=== PATIENT | female | born 1940 | race African-American/Black ===

== ENCOUNTER 2017-05-25 16:59 | Inpatient (IN) ==
[2017-05-25] MEDS ORDERED: TYLENOL PO ONE ×2 (17:10→22:22)
[2017-05-25 17:28] LABS: BLOOD TYPE ARTERIAL; DRAW SITE R BRACHIAL; METHB 1.1 % (0.0-1.5); O2(CT) 18.8 mL/dL (15.0-23.0); PCO2(98.6) 38 mmHg (35-45); PO2(98.6) 55 mmHg (60-100); SAMPLE BLOOD; SAO2 91.6 % (95.0-100.0); THB 15.3 g/dL (11.5-17.4); pH(98.6) 7.43 (7.35-7.45)
[2017-05-25 17:39] LABS: MODALITY CANNULA
[2017-05-25 17:40] LABS: ALLEN TEST NO
[2017-05-25 17:48] LABS: MANUAL DIFF NEEDED? NO
[2017-05-25 17:56] LABS: BASO% 0.1 % (0.0-0.8); HEMATOCRIT 45.6 % (37.0-47.0); HEMOGLOBIN 14.9 g/dL (12.0-16.0); IMM GRAN# 0.07 X1000 (0.0-0.04); IMM GRAN% 0.5 % (0.0-0.5); LYMPH# 0.73 X1000 (1.2-3.4); LYMPH% 5.5 % (20.5-51.1); MCH 31.7 PG (27-31); MCHC 32.7 g/dL (33-37); MONO# 0.99 X1000 (0.11-0.59); MONO% 7.4 % (1.7-9.3); MPV 13.1 FL (7.4-10.4); NEUT% 86.5 % (42.2-75.2); PLT 112 X1000 (130-400)
--- NOTE | 2017-05-25 18:01 | PROVIDER DOCUMENTATION ---
This chart was entered by Lauryn Garcia Scribe, acting as scribe for Juan Clark MD. HPI-Fever - General Source: patient - History of Present Illness-Fever Fever Severity/Quality: reports: greater than 102 F Onset/Duration: reports: last night Timing: reports: still present Recent Illness?: reports: none Cognitive Baseline: alert, oriented x3 Associated Symptoms: reports: cough, diarrhea, fatigue, fever/chills, shortness of breath, weakness <Juan Clark - Last Filed: 05/25/17 18:00> <Ranjeet Maurice - Last Filed: 05/27/17 05:24> - General Chief Complaint: Fever Stated Complaint: FEVER/WEAKNESS Time Seen by Provider: 05/25/17 17:28 Allergies/Adverse Reactions: Patient Allergies Allergy/AdvReac Type Severity Reaction Status Date / Time Sulfa (Sulfonamide Allergy HIVES Verified 12/29/16 13:37 Antibiotics) clonidine AdvReac SHORTNESS Verified 12/29/16 13:37 OF BREATH Home Medications: Home Medication List Medication Instructions Recorded Confirmed Last Taken Type Amlodipine [Norvasc] 1 tab PO DAILY 05/11/14 05/26/17 09/26/16 08:00 History Aspirin 81 mg PO DAILY 05/11/14 05/26/17 09/26/16 08:00 History Carvedilol 25 mg PO BID 05/11/14 05/26/17 09/26/16 08:00 History Hydralazine [Apresoline] 100 mg PO TID 05/11/14 05/26/17 09/26/16 08:00 History Isosorbide Dinitrate 30 mg PO DAILY 05/11/14 05/26/17 09/26/16 08:00 History Metformin HCl [Metformin HCl ER] 1 tab PO DAILY 05/11/14 05/26/17 09/26/16 08: 00 History Pravastatin Sodium 20 mg PO HS 01/07/15 05/26/17 09/25/16 19:00 History Ferrous Sulfate [Ferosul] 325 mg PO DAILY 05/26/17 05/26/17 Unknown History - History of Present Illness-Fever Nature of Presenting Problem: 76 yo F presents to the ER with complaint of fever, SOB, diarrhea, weakness, and cough, onset last night. Pt states she wears oxygen at home only at night. Upon arrival to ED has an O2 sat of 90 and fever of 102.3 (Lauryn Garcia) 76 yo F presents to the ER with complaint of fever, SOB, diarrhea, weakness, and cough, onset last night. Pt states she wears oxygen at home only at night. Upon arrival to ED has an O2 sat of 90 and fever of 102.3 (Juan Clark) Review of Systems - Adult - REVIEW OF SYSTEMS - ADULT Constitutional: reports: chills, fever Eyes: reports: no symptoms reported Ears, Nose, Mouth & Throat: reports: no symptoms reported Cardiovascular: denies: chest pain, palpitations Respiratory: reports: cough, shortness of breath Gastrointestinal: reports: diarrhea. denies: abdominal pain, nausea, vomiting Genitourinary: reports: no symptoms reported Musculoskeletal: reports: no symptoms reported Integumentary: reports: no symptoms reported Neurological: reports: no symptoms reported Psychiatric: reports: no symptoms reported Endocrine: reports: no symptoms reported Hematologic/Lymphatic: reports: no symptoms reported Allergic/Immunologic: reports: no symptoms reported All Other Systems: Reviewed and Negative <Juan Clark - Last Filed: 05/25/17 18:00> - REVIEW OF SYSTEMS - ADULT Constitutional: reports: chills, fever Respiratory: reports: cough, shortness of breath <Ranjeet Maurice - Last Filed: 05/27/17 05:24> Past History - Adult - PAST MEDICAL HISTORY-ADULT Review of Records: reports: Nursing Assessment Review, Medications Reviewed Cardiovascular: reports: arrhythmia, HTN Respiratory: reports: COPD Endocrine/Immune: reports: Diabetes - PRIOR SURGERIES/PROCEDURES Surgical/Procedure History: reports: BTL - IMMUNIZATION STATUS Childhood Immunizations: See Nurse Assessment Flu Vaccine: See Nurse Assessment - SOCIAL HISTORY Smoking: greater than 1 pack/day Provider spent 3-5 mins advising pt. on dangers of tobacco.: Discussed manners to quit use, and f/u contacts for add'l counseling. <Juan Clark - Last Filed: 05/25/17 18:00> - PAST MEDICAL HISTORY-ADULT Review of Records: reports: Nursing Assessment Review, Medications Reviewed <Ranjeet Maurice - Last Filed: 05/27/17 05:24> Physical Exam-General - PHYSICAL EXAM-ADULT Initial Vital Signs Reviewed: Yes - CONSTITUTIONAL General Appearance: alert, no apparent distress - EYES Eyes: PERRL/EOMI, pink conjunctivae - HEAD, EARS, NOSE, MOUTH & THROAT HENMT: TMs normal, pharynx normal, other (coated tongue). negative: moist mucous membranes - NECK Neck: supple, normal inspection - RESPIRATORY Respiratory: no respiratory distress, no accessory muscle use, increased rate - CARDIOVASCULAR Cardiovascular: normal peripheral pulses, tachycardia - GASTROINTESTINAL (ABDOMEN) Abdominal Exam: normal bowel sounds, non tender, soft - MUSCULOSKELETAL Back Exam: no CVA tenderness, no vertebral tenderness Extremity: normal gait, normal inspection - SKIN Integumentary: normal color, warm/dry - NEUROLOGIC Neurologic: grossly normal, no motor/sensory deficits - PSYCHIATRIC Psych/Mental Status: normal mood/affect, normal thought content, normal thought process, oriented x 3 <Juan Clark - Last Filed: 05/25/17 18:00> - PHYSICAL EXAM-ADULT Initial Vital Signs Reviewed: Yes - CONSTITUTIONAL General Appearance: alert, no apparent distress - EYES Eyes: PERRL/EOMI, pink conjunctivae <Ranjeet Maurice - Last Filed: 05/27/17 05:24> Progress - PLAN OF CARE/RESULTS Result Diagrams: 05/25/17 17:35 - CHANGE OF SHIFT REPORT (ED Provider) Report Given and Care Transferred to:: Dr. Maurice Time of Transfer: 17:54 Items Pending: Labs, XRAY Results <Juan Clark - Last Filed: 05/25/17 18:00> - PLAN OF CARE/RESULTS Result Diagrams: 05/26/17 07:45 05/26/17 07:45 - CONSULTS/PCP/HOSPITALIST Notification #1 *Consult/PCP/Hospitalist*: Dr Duncan Time Discussed: 20:20 Consult Disposition: Admit (does not meet admission criteria, but pt terrifed that she is about to and says oxygen at home is not working) <Ranjeet Maurice - Last Filed: 05/27/17 05:24> - PLAN OF CARE/RESULTS Progress/Plan/Lab Results: Laboratory Results - last 24 hr 05/26/17 05/26/17 05/26/17 04:45 07:45 07:45 WBC 11.36 H RBC 4.72 Hgb 15.2 Hct 46.0 MCV 97.5 MCH 32.2 H MCHC 33.0 RDW Std Deviation 14.3 Plt Count 124 L MPV 11.2 H Immature Gran % (Auto) 0.4 Neut % (Auto) 89.3 H Lymph % (Auto) 5.2 L Waldo % (Auto) 5.0 Eos % (Auto) 0.0 Baso % (Auto) 0.1 Immature Gran # (Auto) 0.05 H Neut # (Auto) 10.14 H Lymph # (Auto) 0.59 L Waldo # (Auto) 0.57 Eos # (Auto) 0.00 Baso # (Auto) 0.01 Segmented Neutrophils 89 H Lymphocytes 9 L Monocytes 2 Sodium 139 Potassium 3.1 L D Chloride 100 Carbon Dioxide 25 Anion Gap 14 BUN 23 H Creatinine 0.9 Estimated GFR/1.73 m2 > 60 BUN/Creatinine Ratio 26 Glucose 169 H POC Glucose Calculated Osmolality 285 Calcium 9.1 Stool C.difficile Toxin NEGATIVE 05/26/17 07:46 WBC RBC Hgb Hct MCV MCH MCHC RDW Std Deviation Plt Count MPV Immature Gran % (Auto) Neut % (Auto) Lymph % (Auto) Waldo % (Auto) Eos % (Auto) Baso % (Auto) Immature Gran # (Auto) Neut # (Auto) Lymph # (Auto) Waldo # (Auto) Eos # (Auto) Baso # (Auto) Segmented Neutrophils Lymphocytes Monocytes Sodium Potassium Chloride Carbon Dioxide Anion Gap BUN Creatinine Estimated GFR/1.73 m2 BUN/Creatinine Ratio Glucose POC Glucose 140 H Calculated Osmolality Calcium Stool C.difficile Toxin Orders Category Date Time Status Admit - [facility] Routine AdmDCTranf 05/25/17 21:50 Ordered Daily Weights 0500 Care 05/26/17 06:35 Active FSBS/Accucheck Result AC + HS Care 05/26/17 06:35 Active Oxygen Therapy- ED Nursing DIRECTED Care 05/25/17 17:12 Completed Diabetic Diet Diet 05/26/17 06:35 Active ANGIOGRAM/PULMONARY ARTERIES [CT] Stat Exams 05/25/17 18:51 Completed CHEST-2 VIEWS [RAD] Stat Exams 05/25/17 17:10 Completed ABG [RESP] Routine Lab 05/25/17 17:06 Completed BASIC METABOLIC PANEL [CHEM] Stat Lab 05/26/17 07:45 Completed BLOOD CULTURE [BLDCUL] Stat Lab 05/25/17 18:10 Results CBC WITH DIFF [HEME] Stat Lab 05/25/17 17:35 Completed CBC WITH DIFF [HEME] Stat Lab 05/26/17 07:45 Completed COMPREHENSIVE METABOLIC PANEL [CHEM] Stat Lab 05/25/17 17:35 Completed D-DIMER PL [COAG] Stat Lab 05/25/17 17:35 Completed Flu [INFLUENZA SCREEN PL] Stat Lab 05/25/17 18:20 Completed LACTATE, PLASMA [CHEM] Stat Lab 05/25/17 17:35 Completed PRO B-NATRIURETIC PEPTIDE Stat Lab 05/25/17 17:35 Completed STOOL CULTURE [RM] Routine Lab 05/26/17 04:45 Received Stool [C DIFF TOXIN PL] Routine Lab 05/26/17 04:[address] W/POSS RFLX CULT [URINALYSIS] Stat Lab 05/25/17 18:20 Completed URINE CULTURE [RM] Routine Lab 05/25/17 21:49 Results Acetaminophen [Tylenol] Med 05/25/17 17:10 Discontinued 1,000 mg PO NOW ONE Acetaminophen [Tylenol] Med 05/25/17 22:22 Discontinued 650 mg PO NOW ONE Albuterol 2.5MG/Ipratrop 0.5MG [Duoneb (A & A)] Med 05/26/17 10:00 Active 3 ml INH RTQ6H Azithromycin 500 mg/Ns [Zithromax 500 mg/Ns] Med 05/25/17 22:00 Discontinued 500 mg in 250 ml IV Q24H CefTRIAXONE 1 GM/NS [Rocephin 1 gm/Ns] Med 05/25/17 18:56 Discontinued 1 gm in 50 ml IV NOW Diphenhydramine [Benadryl] Med 05/25/17 20:01 Discontinued 25 mg IV NOW ONE Furosemide [Lasix] Med 05/25/17 21:34 Discontinued 40 mg IV NOW ONE Hydrocortisone Sod Succinate [Solu-Cortef] Med 05/25/17 20:01 Discontinued 100 mg IV NOW ONE Ibuprofen [Motrin] Med 05/25/17 20:39 Discontinued 600 mg .ROUTE .STK-MED ONE Ibuprofen [Motrin] Med 05/25/17 20:37 Discontinued 600 mg PO NOW ONE Aerosol Treatments Routine Oth 05/26/17 06:37 Completed Aerosol Treatments Stat Oth 05/26/17 06:37 Completed O2 Per Protocol Routine Oth 05/26/17 06:35 Completed Transfer/Admit Order [TRANSFER] Routine Transfer 05/25/17 22:48 Completed Departure <Juan Clark - Last Filed: 05/25/17 18:00> - Departure Date of Disposition Decision: 05/25/17 Time of Disposition Decision: 20:30 Certified Medical Emergency: Emergent - Critical Care Note This patient required my direct & personal management of CC.: No <Ranjeet Maurice - Last Filed: 05/27/17 05:24> - Departure DIAGNOSIS: Respiratory abnormality, unspecified Fever Qualifiers: Fever type: unspecified Qualified Code(s): R50.9 - Fever, unspecified Disposition: ADMITTED INPATIENT 09 Condition: Stable This chart was documented by the indicated scribe, (Lauryn Garcia Scribe) and accurately reflects the services I performed and decisions made by me, Juan Clark MD, as attested by the provider's signature.
--- NOTE | 2017-05-25 18:15 | Diag Imaging Result Doc PS360 ---
EXAM: CHEST-2 VIEWS - 05/25/2017 HISTORY: cough fever sob TECHNIQUE: Chest two views COMPARISON: 12/29/2016 FINDINGS: Heart size appears upper normal. There is mild tortuosity of the thoracic aorta and there are atherosclerotic convocations of the aortic arch, similar to the prior exam. There are possible COPD changes. There is apparent infiltrate in the right middle lobe, which may relate to bronchopneumonia. There are no other acute changes identified. There is thoracic spondylosis noted. IMPRESSION: Apparent right middle lobe infiltrate, suspicious for bronchopneumonia. Electronically signed by Temo Coughlin 05/25/2017 6:12 PM
[2017-05-25 18:38] LABS: AGAP 16; ALBUMIN 4.1 g/dL (3.5-5.0); ALKALINE PHOSPHATASE 60 U/L (32-104); BUN 16 mg/dL (8-22); CALCIUM 9.1 mg/dL (8.8-10.2); CHLORIDE 98 mmol/L (98-107); COSMO 277; GOT 18 U/L (10-30); GPT 14 U/L (10-36); POTASSIUM 3.8 mmol/L (3.5-5.1); SODIUM 136 mmol/L (136-145); TCO2 22 mmol/L (25-35); TOTAL PROTEIN 7.3 g/dL (6.3-8.3)
[2017-05-25] MEDS ORDERED: ROCEPHIN 1 GM/NS 1 GM/50 ML IVPB IV ONE (18:56)
[2017-05-25 19:13] LABS: BILIRUBIN URINE 1+ (NEGATIVE); BLOOD URINE TRACE (NEGATIVE); CLARITY SL. CLOUDY (CLEAR); COLOR YELLOW; GLUCOSE URINE NEGATIVE (NEGATIVE); LEUKOCYTES URINE TRACE (NEGATIVE); NITRITE URINE NEGATIVE (NEGATIVE); PROTEIN URINE 2+(100 mg/dL) mg/dL (NEGATIVE); UROBILINOGEN URINE NORMAL
[2017-05-25 19:14] LABS: URINE CAST NONE SEEN /LPF; URINE CRYSTAL NONE SEEN /HPF; URINE CULTURE PL NEEDED? YES; URINE EPITHELIAL CELLS <10 /HPF (<10); URINE RBC <10 /HPF (<10); URINE SOURCE CLEAN CATCH
[2017-05-25] MEDS ORDERED: SOLU-CORTEF IV ONE (20:01)
[2017-05-25] MEDS ORDERED: BENADRYL IV ONE (20:01)
[2017-05-25] MEDS ORDERED: MOTRIN PO ONE (20:37)
[2017-05-25] MEDS ORDERED: MOTRIN ONE (20:39)
--- NOTE | 2017-05-25 20:56 | Diag Imaging Result Doc PS360 ---
EXAM: ANGIOGRAM/PULMONARY ARTERIES - 05/25/2017 HISTORY: hypoxia/ fever/ ddimer+/leukocytosis TECHNIQUE: With intravenous contrast. Dose reduction protocol. COMPARISON: None. FINDINGS: There are some artifacts from motion which limits detail at peripheral pulmonary arteries. There are no discrete pulmonary artery filling defects identified. There are atheromatous changes noted in the thoracic aorta. There is no discrete aortic dissection identified. There are apparent mild COPD changes. There is some dependent subsegmental atelectasis at the lower lobes. There is no consolidation, pleural effusion, or pneumothorax identified. There is a calcified granuloma the right upper lobe and there are calcified right hilar mediastinal lymph nodes, consistent with old granulomatous disease. There is a small triangular opacity suggestive of scar at the right midlung. IMPRESSION: No evidence of pulmonary embolism. Mild dependent atelectasis. No discrete pneumonia. Electronically signed by Temo Coughlin 05/25/2017 8:54 PM
[2017-05-25] MEDS ORDERED: LASIX IV ONE (21:34)
[2017-05-25] MEDS ORDERED: ZITHROMAX 500 MG/NS 500 MG/250 ML IVPB IV SCH (22:00)
[2017-05-26 08:03] LABS: BASO% 0.1 % (0.0-0.8); HEMOGLOBIN 15.2 g/dL (12.0-16.0); IMM GRAN# 0.05 X1000 (0.0-0.04); IMM GRAN% 0.4 % (0.0-0.5); LYMPH# 0.59 X1000 (1.2-3.4); LYMPH% 5.2 % (20.5-51.1); MANUAL DIFF NEEDED? YES; MCH 32.2 PG (27-31); MCV 97.5 FL (81-99); MONO# 0.57 X1000 (0.11-0.59); MPV 11.2 FL (7.4-10.4); NEUT% 89.3 % (42.2-75.2); PLT 124 X1000 (130-400); RBC 4.72 XMIL (4.2-5.4)
[2017-05-26 08:21] LABS: LYMPHS 9 % (21-51); MONO 2 % (1-9)
[2017-05-26 08:52] LABS: AGAP 14; BUN 23 mg/dL (8-22); CALCIUM 9.1 mg/dL (8.8-10.2); CHLORIDE 100 mmol/L (98-107); COSMO 285; POTASSIUM 3.1 mmol/L (3.5-5.1); SODIUM 139 mmol/L (136-145); TCO2 25 mmol/L (25-35)
[2017-05-26] MEDS: DUONEB (A & A) INH SCH ×3 (09:45→22:08)
[2017-05-26] MEDS: ZITHROMAX 500 MG/NS 500 MG/250 ML IVPB IV SCH (10:02)
[2017-05-26] MEDS ORDERED: IMODIUM LIQUID PO ONE (11:15)
--- NOTE | 2017-05-26 12:30 | HISTORY AND PHYSICAL ---
PRIMARY CARE PHYSICIAN: RIO Allen CHIEF COMPLAINT: Fever, shortness of breath, weakness, productive cough and diarrhea. HISTORY OF PRESENTING ILLNESS: This is a 76-year-old female who presents to [facility] ER with complaints of fever, shortness of breath, weakness and a productive cough. She states that she has been using her O2 at bedtime. On arrival, she had a fever of 102.3. Her white count was 13.39. Chest x-ray showed an apparent right middle lobe infiltrate suspicious for bronchopneumonia. She was noted to have an elevated D-dimer at 1.73. Pulmonary arteriogram was obtained that showed no evidence of a pulmonary emboli. So, she is being admitted for further evaluation and treatment. PAST MEDICAL HISTORY: Coronary artery disease, diabetes type 2, hyperlipidemia, hypertension, peripheral vascular disease, arthritis and sleep apnea. PAST SURGICAL HISTORY: Vocal cord polypectomy, a cholecystectomy, and a bilateral tubal ligation. FAMILY HISTORY: Noncontributory. SOCIAL HISTORY: She currently lives with her son. Smokes 1 pack of cigarettes a day and denied any alcohol or illicit drug use. ALLERGIES: Sulfa. Clonidine. HOME MEDICATIONS: A current list will be obtained and we will restart as appropriate. LABORATORY DATA: Showed a white blood cell count of 13.39, hemoglobin of 14.9, hematocrit 45.6, platelets 112,000. D-dimer of 1.73. ABG with a pH of 7.43, pCO2 of 38, PO2 55, bicarbonate 25.4. Sodium 136, potassium 3.8, chloride 98, CO2 22, BUN of 16, creatinine 0.9, glucose 171, proBNP 2702. Urinalysis was negative. Clostridium difficile toxin stool was negative. Influenza a and B were both negative. A chest x-ray showed apparent right middle lobe infiltrates suspicious for bronchopneumonia. A pulmonary arteriogram that showed no evidence of a pulmonary emboli. REVIEW OF SYSTEMS: She was positive for a subjective fever, chills, body aches, shortness of breath, productive cough, generalized weakness and diarrhea. Otherwise negative review of systems. PHYSICAL EXAMINATION: VITAL SIGNS: On arrival, she had a temperature of 102.3 degrees, pulse 95, respirations 20, blood pressure 144/76, saturating 90% on room air. GENERAL: This is a 76-year-old female who is lying in the bed, and answers questions appropriately. HEENT: Normocephalic and atraumatic. Pupils are equal, round, reactive to light. Extraocular movements are intact. The oropharynx and nares are clear. NECK: Supple. LUNGS: Clear to auscultation bilaterally with equal lung expansion and chest wall movement. O2 via nasal cannula is currently in use. HEART: Regular rate and rhythm. No murmurs, rubs, or gallops. ABDOMEN: Soft, nontender, nondistended. Bowel sounds are present x4 quadrants. EXTREMITIES: No clubbing, cyanosis, or edema. NEUROLOGICAL: The cranial nerves 2-12 are grossly intact. ASSESSMENT: 1. Right middle lobe bronchial pneumonia. 2. Leukocytosis. 3. Diarrhea. 4. Diabetes type 2. PLAN: She was admitted to the medical unit at [place] and placed on a diabetic diet. O2 per protocol. Checking a stool culture. Blood cultures x2 and a urine culture are pending. She is on DuoNeb q.6 hours. We will continue Rocephin 1 gram IV q.24, and had Zithromax 500 mg IV q.24. We will verify her home medication dosages and restart those as appropriate and will give Tylenol 650 p.o. q.4 hours p.r.n. for fever. We will recheck a CBC and a BMP in the a.m. Dictated by RIO Herbert for Brandon Mendenhall MD cc: RIO Herbert MD Diana Wilhite, CRNP
[2017-05-26] MEDS: TYLENOL PO PRN ×2 (14:37→18:58)
[2017-05-26] MEDS: ROCEPHIN 1 GM/NS 1 GM/50 ML IVPB IV SCH (18:27)
[2017-05-26] MEDS ORDERED: IMODIUM PO PRN (21:59)
[2017-05-26] MEDS: COREG PO SCH (22:00)
[2017-05-27] MEDS: DUONEB (A & A) INH SCH ×4 (03:01→22:59)
[2017-05-27] MEDS: APRESOLINE PO SCH ×3 (06:32→20:05)
[2017-05-27 06:50] LABS: MANUAL DIFF NEEDED? NO
[2017-05-27 07:06] LABS: BASO% 0.3 % (0.0-0.8); EOS# 0.02 X1000 (0.0-0.7); EOS% 0.3 % (0.0-10.0); HEMATOCRIT 42.6 % (37.0-47.0); HEMOGLOBIN 13.7 g/dL (12.0-16.0); IMM GRAN# 0.01 X1000 (0.0-0.04); IMM GRAN% 0.1 % (0.0-0.5); LYMPH# 1.07 X1000 (1.2-3.4); MCH 31.9 PG (27-31); MCHC 32.2 g/dL (33-37); MCV 99.1 FL (81-99); MONO# 0.94 X1000 (0.11-0.59); MONO% 12.3 % (1.7-9.3); MPV 12.1 FL (7.4-10.4); PLT 96 X1000 (130-400)
[2017-05-27] MEDS: HUMALOG DOSE (PARKWAY) SUBQ SCH ×4 (07:30→20:38)
[2017-05-27 07:58] LABS: AGAP 12; BUN 24 mg/dL (8-22); CALCIUM 8.9 mg/dL (8.8-10.2); CHLORIDE 100 mmol/L (98-107); COSMO 282; POTASSIUM 2.8 mmol/L (3.5-5.1); SODIUM 139 mmol/L (136-145); TCO2 27 mmol/L (25-35)
[2017-05-27] MEDS: NORVASC PO SCH (09:13)
[2017-05-27] MEDS: COREG PO SCH ×2 (09:13→20:05)
[2017-05-27] MEDS: FERROUS SULFATE PO SCH (09:13)
[2017-05-27] MEDS: ASPIRIN PO SCH (09:13)
[2017-05-27] MEDS: IMDUR PO SCH (09:13)
[2017-05-27] MEDS: ZITHROMAX 500 MG/NS 500 MG/250 ML IVPB IV SCH (09:14)
[2017-05-27] MEDS: POTASSIUM CHLORIDE 20 MEQ/SWI 20 MEQ/100 ML IVPB IV SCH ×2 (09:14→11:24)
[2017-05-27] MEDS ORDERED: NS 250 ML ONE (10:58)
--- NOTE | 2017-05-27 11:56 | PROGRESS NOTE ---
DATE: 05/27/2017 SUBJECTIVE: The patient states that she is feeling some better today. She has had less shortness of breath. She denies chest pain, palpitations, dizziness, syncope, LABORATORY DATA: WBC is 7.63, with a hemoglobin 13.7, hematocrit 42.6, and platelets of 96,000. Sodium is 139, potassium 2.8, BUN is 24, creatinine 0.9, with a glucose ranging from 113-160. ASSESSMENT: 1. Right middle lobe bronchial pneumonia. 2. Leukocytosis. 3. Diarrhea. 4. Diabetes mellitus type 2. PLAN: We will continue with her current medical regimen. We will treat her potassium. We will trend labs and replete electrolytes as appropriate. The patient continues with diarrhea although stool cultures have shown no enteric pathogen. We will start probiotics and continue Imodium. We will repeat labs in the morning. Dictated by RIO Ash for Jose Roberto Benavides MD cc: RIO Ash MD
[2017-05-27] MEDS ORDERED: NICODERM PATCH TD PRN (14:48)
[2017-05-27] MEDS ORDERED: ZITHROMAX 500 MG/NS 500 MG/250 ML IVPB IV SCH (17:53)
[2017-05-27] MEDS: ROCEPHIN 1 GM/NS 1 GM/50 ML IVPB IV SCH (18:13)
[2017-05-27] MEDS: CULTURELLE PO SCH (20:05)
[2017-05-27] MEDS ORDERED: PRAVACHOL PO SCH (21:00)
[2017-05-28] MEDS: DUONEB (A & A) INH SCH (03:40)
[2017-05-28] MEDS: APRESOLINE PO SCH (05:11)
[2017-05-28] MEDS: HUMALOG DOSE (PARKWAY) SUBQ SCH (06:01)
[2017-05-28 07:40] VITALS: BP 134/46
[2017-05-28 08:23] LABS: HEMATOCRIT 41.7 % (37.0-47.0); HEMOGLOBIN 13.7 g/dL (12.0-16.0); MCHC 32.9 g/dL (33-37); MCV 97.4 FL (81-99); MPV 12.8 FL (7.4-10.4); RBC 4.28 XMIL (4.2-5.4)
[2017-05-28] MEDS: FERROUS SULFATE PO SCH (08:37)
[2017-05-28] MEDS: IMDUR PO SCH (08:38)
[2017-05-28] MEDS: ASPIRIN PO SCH (08:38)
[2017-05-28] MEDS: COREG PO SCH (08:38)
[2017-05-28] MEDS: NORVASC PO SCH (08:38)
[2017-05-28] MEDS: CULTURELLE PO SCH (08:38)
[2017-05-28 08:40] LABS: AGAP 11; BUN 19 mg/dL (8-22); CALCIUM 9.1 mg/dL (8.8-10.2); CHLORIDE 105 mmol/L (98-107); COSMO 286; SODIUM 142 mmol/L (136-145); TCO2 27 mmol/L (25-35)
[2017-05-28] MEDS ORDERED: OMNICEF PO SCH (09:00)
[2017-05-28] MEDS ORDERED: ZITHROMAX PO SCH (09:00)
--- NOTE | 2017-05-29 07:36 | DISCHARGE SUMMARY ---
ADMISSION DATE: 05/26/2017 DISCHARGE DATE: 05/28/2017 DIAGNOSES: 1. Right middle lobe bronchial pneumonia. 2. Leukocytosis, resolved. 3. Diarrhea, resolved. 4. Diabetes mellitus, type 2. DIAGNOSTICS: 05/25/2017, chest x-ray revealed apparent right middle lobe infiltrate suspicious for bronchopneumonia. 05/25/2017, pulmonary arteriogram. No evidence of pulmonary embolism. MICROBIOLOGY: 1. Blood cultures x2 revealed no growth after 48 hours. 2. Urine culture revealed no growth. 3. Stool culture revealed no enteric pathogen x2. HOSPITAL COURSE: Ms. Roe presented to the emergency room complaining of fever, shortness of breath, weakness with a productive cough and diarrhea. She was found to have right middle lobe bronchial pneumonia for which she was given Rocephin and Zithromax IV. Blood cultures were negative. Pulmonary toilet with DuoNebs, thankfully, she has improved and is ready to go home. She had three diarrhea stools shortly after being admitted. She has had formed stools since. DISCHARGE PHYSICAL EXAMINATION: Cardiovascular: Regular rate and rhythm. S1 and S2 appreciated. Pulmonary: Breath sounds are clear, diminished, with no increased work of breathing noted. Gastrointestinal: Abdomen is soft, nontender, nondistended with bowel sounds in all 4 quadrants. Extremities: No clubbing, cyanosis, or edema. Calves are nontender. Pulses are palpable x4. Neurologic: She is alert and oriented. Discharge Vital Signs: Blood pressure is 134/46, heart rate of 83, respirations 18, temperature 98.2 degrees oral. DISCHARGE MEDICATIONS: 1. Iron 325 daily. 2. Aspirin 81 mg daily. 3. Norvasc 1 tab daily. 4. Isosorbide dinitrate 30 mg daily. 5. Hydralazine 100 mg t.i.d. 6. Carvedilol 25 b.i.d. 7. Metformin ER 1 tablet daily. 8. Pravastatin 20 at bedtime. 9. Omnicef 300 mg b.i.d. x7 days. 10. Zithromax 500 daily x7 days. 11. DuoNebs q. 6 hours. FOLLOWUP: She is to follow up with her primary care physician in 1-2 weeks. She is being discharged home in stable condition. This is greater than a 30 minute discharge. Dictated by RIO Ash for Jose Roberto Benavides MD cc: RIO Ash MD
== END 2017-05-28 10:36 | disposition home or self-care (01) ==
LOC: P.MEDSURG 16:59 → P.ED 16:59 → SUATTDRO 05-26 09:04
PROVIDERS: ADMIT Family Medicine; ATTEND Family Medicine